=== PATIENT | female | born 1995 | race Hispanic/Latino ===

== ENCOUNTER 2020-07-02 06:51 | Outpatient (NON) | payer OTHER, SELFPAY ==
[2020-07-03 00:16] LABS: SARS-CoV-2 RNA PCR Negative
== END 2020-07-02 06:52 ==
PROVIDERS: PCP Registered Nurse; Visit Provider Nurse Practitioner Family
DX: Z20.828 Contact with and (suspected) exposure to other viral communicable diseases (principal)
CPT/HCPCS: C9803; U0003; U0005